=== PATIENT | male | born 1995 | race African-American/Black ===

== ENCOUNTER 2022-04-20 21:13 | Emergency (ER) | payer SELFPAY ==
--- NOTE | 2022-04-20 | ECG_ITS ---
Test Reason : OVERDOSE Blood Pressure : / mmHG Vent. Rate : 055 BPM Atrial Rate : 055 BPM P-R Int : 156 ms QRS Dur : 106 ms QT Int : 428 ms P-R-T Axes : 039 077 044 degrees QTc Int : 409 ms Sinus bradycardia Early repolarization Otherwise normal ECG No previous ECGs available Referred By: Generic ED Physician Electronically Signed By:KAITLIN BARNETT MD
--- NOTE | ~2022-04-20 | XR_ITS ---
EXAMINATION: XR CHEST CLINICAL INFORMATION: Overdose COMPARISON: None TECHNIQUE: Frontal view of the chest was obtained. FINDINGS: Aside from hypoinflation, no significant abnormality is noted involving the heart, lungs, mediastinum, bony thorax or soft tissues. There is gaseous distention of the stomach. XR/XR chest 1V IMPRESSION: No acute intrathoracic disease.
[2022-04-20 21:23] VITALS: BP 138/108; PULSE 56; O2SAT 95; BMI 24.3
--- NOTE | 2022-04-20 21:27 | PC.NURSE ---
Pt arrives via EMS as a presumed overdose. Immediately on arrival pts clothes removed and all of his clothes and belongings placed in belongings bags and given to security. RR WNL, non-labored, Room air sat's WNL.
[2022-04-20 21:36] VITALS: BP 84/39; PULSE 54; RESP 10; O2SAT 99
--- NOTE | 2022-04-20 21:41 | MHC.EDTECH ---
RN Made aware of Low BP
--- NOTE | 2022-04-20 21:51 | ED.OVERDOSE ---
HPI - Overdose General Chief Complaint: Overdose Stated Complaint: overdose Time Seen by Provider: 04/20/22 21:49 Source: EMS Mode of arrival: EMS Limitations: altered mental status History of Present Illness HPI Narrative: Patient brought by EMS for presumed overdose found unresponsive by PD prior to EMS arrival was given 8 mg of intranasal Narcan by the PD and 2 mg of IV Narcan by EMS and patient I had patient was drowsy patient admitted using marijuana and alcohol denies any opiates on arrival patient's blood pressure was 84/39 with pulse rate of 54 respiration 10 saturating 99% at room air Related Data Allergies Allergy/AdvReac Type Severity Reaction Status Date / Time No Known Allergies Allergy Verified 04/20/22 22:05 Review of Systems Review of Systems: Yes Unobtainable due to mental status PMFSH Social History Social History Advance Directives: No Advance Directives Information Provided: No Physical Exam Vital Signs: Vital Signs: Last Vital Signs Temp 98.6 F 04/20/22 23:47 Pulse 72 04/21/22 02:15 Resp 14 04/21/22 02:15 BP 100/55 L 04/21/22 02:15 Pulse Ox 98 04/21/22 02:15 O2 Del Method 04/21/22 02:15 BMI result Body Mass Index 24.3 Appearance: Drowsy and sleepy arousable. No acute distress. Eyes: PERRLA, No Nystagmus HEENT: Pharynx normal. Oral Mucosa moist atraumatic normocephalic Neck: Normal inspection. Neck supple. CVS: Normal heart rate and rhythm. Pulses normal. Respiratory: No respiratory distress. Equal air entry bilateral, no wheezing/rales/rhonchi Abdomen: Soft and nontender. Bowel sounds are present, no mass palpable, no CVA tenderness Skin: Skin warm and dry. Normal skin color. Normal skin turgor. Extremities: No lower extremity edema. No calf tenderness Neuro: Lethargic. No motor deficit. No sensory deficit.No cerebellar signs , cranial nerves II-XII intact Medications Administered Discontinued Medications Generic Name Dose Route Start Last Admin Trade Name Freq PRN Reason Stop Dose Admin Sodium Chloride 1,000 mls @ 999 mls/hr 04/20/22 22:05 04/21/22 03:28 Ns IV 04/20/22 23:05 Infused .Q1H1M ONE Infusion Sodium Chloride 1,000 mls @ 999 mls/hr 04/20/22 22:08 04/21/22 03:28 Ns IV 04/20/22 23:08 Infused .Q1H1M ONE Infusion Medical Decision Making Medical Decision Making [facility] Narrative: 02:00 patient initially came in intoxicated etiology was not clear workup showed alcohol level of 173 patient woke up denied any use of narcotics was given a kit likely the cause of hypertension patient received 2 L of fluids blood pressure improved to 100/55 patient asymptomatic at this time will discharge patient home Lab Data [facility] Lab Attestation statement: I reviewed the patient's lab results. 04/20/22 22:17 04/20/22 22:17 Labs: Lab Results 04/20/22 04/20/22 04/20/22 Range/Units 22:17 22:17 22:17 WBC 6.8 (4.8-10.8) X10*3/uL RBC 4.04 L (4.60-5.80) X10*6/uL Hgb 12.4 L (14.0-18.0) g/dl Hct 37.8 L (42.0-52.0) % MCV 93.6 (80.0-98.0) fL MCH 30.7 (27.0-33.0) pg MCHC 32.8 (31.0-36.0) g/dl RDW 11.9 (11.0-16.0) % Plt Count 208 (160-400) X10*3/uL MPV 10.1 (9.4-12.4) fL Immature Gran % (Auto) 0.3 (0.0-0.4) % Neut % (Auto) 46.8 (45-73) % Lymph % (Auto) 46.9 H (20-40) % [place] % (Auto) 4.4 (2-11) % Eos % (Auto) 0.9 (0-4) % Baso % (Auto) 0.7 (0-2) % Lymph # (Auto) 3.2 (1.2-4.9) X10*3/uL [place] # (Auto) 0.3 (0.1-1.2) X10*3/uL Eos # (Auto) 0.1 (0.0-0.4) X10*3/uL Baso # (Auto) 0.1 (0.0-0.2) X10*3/uL Abs Immat Gran (auto) 0.02 (0.00-0.03) X10*3/uL Absolute Neuts (auto) 3.2 (2.0-8.3) x10*3/uL Absolute Nucleated RBC 0.000 (0.0-0.012) X10*3/uL Nucleated RBC % (auto) 0.0 (0.0-0.2) /100WBC Sodium 144 (135-145) mmol/L Potassium 4.6 (3.3-5.1) mmol/L Chloride 110 H (96-108) mmol/L Carbon Dioxide 23 (22-29) mmol/L Anion Gap 16 (12-20) BUN 12 (9-16) mg/dL Creatinine 0.99 (0.5-1.4) mg/dL Estim Creat Clear Calc 114.7 Estimated GFR > 60 Random Glucose 122 H (60-115) mg/dL Calcium 8.8 (8.4-10.2) mg/dL Magnesium (1.6-2.6) mg/dL Total Bilirubin 0.8 (0.0-1.0) mg/dL AST 24 (5-37) U/L ALT 14 (0-40) U/L Alkaline Phosphatase 64 (39-117) U/L Troponin I High Sens < 3.5 (<3.5-35.0) ng/L Total Protein 6.8 (6.5-8.0) g/dL Albumin 4.2 (3.5-5.0) g/dL Salicylates (15-30) mg/dL Urine Opiates Screen (Not Detect) Urine Fentanyl Screen (Not Detect) Acetaminophen (<30) mcg/mL Ur Barbiturates Screen (Not Detect) Ur Phencyclidine Scrn (Not Detect) Ur Amphetamines Screen (Not Detect) U Benzodiazepines Scrn (Not Detect) Urine Cocaine Screen (Not Detect) U Marijuana (THC) Screen (Not Detect) Ethyl Alcohol mg/dL 04/20/22 04/21/22 Range/Units 22:17 02:30 WBC (4.8-10.8) X10*3/uL RBC (4.60-5.80) X10*6/uL Hgb (14.0-18.0) g/dl Hct (42.0-52.0) % MCV (80.0-98.0) fL MCH (27.0-33.0) pg MCHC (31.0-36.0) g/dl RDW (11.0-16.0) % Plt Count (160-400) X10*3/uL MPV (9.4-12.4) fL Immature Gran % (Auto) (0.0-0.4) % Neut % (Auto) (45-73) % Lymph % (Auto) (20-40) % [place] % (Auto) (2-11) % Eos % (Auto) (0-4) % Baso % (Auto) (0-2) % Lymph # (Auto) (1.2-4.9) X10*3/uL [place] # (Auto) (0.1-1.2) X10*3/uL Eos # (Auto) (0.0-0.4) X10*3/uL Baso # (Auto) (0.0-0.2) X10*3/uL Abs Immat Gran (auto) (0.00-0.03) X10*3/uL Absolute Neuts (auto) (2.0-8.3) x10*3/uL Absolute Nucleated RBC (0.0-0.012) X10*3/uL Nucleated RBC % (auto) (0.0-0.2) /100WBC Sodium (135-145) mmol/L Potassium (3.3-5.1) mmol/L Chloride (96-108) mmol/L Carbon Dioxide (22-29) mmol/L Anion Gap (12-20) BUN (9-16) mg/dL Creatinine (0.5-1.4) mg/dL Estim Creat Clear Calc Estimated GFR Random Glucose (60-115) mg/dL Calcium (8.4-10.2) mg/dL Magnesium 2.0 (1.6-2.6) mg/dL Total Bilirubin (0.0-1.0) mg/dL AST (5-37) U/L ALT (0-40) U/L Alkaline Phosphatase (39-117) U/L Troponin I High Sens (<3.5-35.0) ng/L Total Protein (6.5-8.0) g/dL Albumin (3.5-5.0) g/dL Salicylates < 5.0 L (15-30) mg/dL Urine Opiates Screen Not Detected (Not Detect) Urine Fentanyl Screen Not Detected (Not Detect) Acetaminophen < 17 (<30) mcg/mL Ur Barbiturates Screen Not Detected (Not Detect) Ur Phencyclidine Scrn Not Detected (Not Detect) Ur Amphetamines Screen Not Detected (Not Detect) U Benzodiazepines Scrn Not Detected (Not Detect) Urine Cocaine Screen Not Detected (Not Detect) U Marijuana (THC) Screen POSITIVE H (Not Detect) Ethyl Alcohol 173 mg/dL Independent Interpretation I performed an independent interpretation of an: EKG Interpretation: Sinus bradycardia heart rate 55 beats per minute normal interval normal axis early repolarization changes no acute ischemic Discharge Plan Discharge Clinical Impression: Alcohol intoxication Patient Disposition: Home, Self-Care Instructions: Alcohol Intoxication (ED) Additional Instructions: Do not drink alcohol Follow detox if any concerns Interventions: Spicer-Suicide Risk Severity Scale Last Done: 04/21/22 04:21 ED Discharge Assessment Last Done: 04/21/22 04:21 Discharge Date/Time: 04/21/22 04:22
--- NOTE | 2022-04-20 21:54 | PC.NURSE ---
Pt assessed, hypotensive, arousableto voice and light touch. 1 liter of NS infusing
[2022-04-20] MEDS: 0.9 % Sodium Chloride 1,000 ML 999 ML IV ×2 (22:00→22:42)
[2022-04-20 22:23] LABS: MANUAL DIFF FLAG NO
[2022-04-20 22:25] LABS: Basophils Absolute Auto 0.1 X10*3/uL (0.0-0.2); Basophils Percent Auto 0.7 % (0-2); Eosinophils Absolute Auto 0.1 X10*3/uL (0.0-0.4); Eosinophils Percent Auto 0.9 % (0-4); Hematocrit 37.8 % (42.0-52.0); Hemoglobin 12.4 g/dl (14.0-18.0); Imm Gran Abs Auto 0.02 X10*3/uL (0.00-0.03); Imm Gran Pct Auto 0.3 % (0.0-0.4); Lymphocytes Absolute Auto 3.2 X10*3/uL (1.2-4.9); Lymphocytes Percent Auto 46.9 % (20-40); Mean Corpuscular HGB Conc 32.8 g/dl (31.0-36.0); Mean Corpuscular Hemoglobin 30.7 pg (27.0-33.0); Mean Corpuscular Volume 93.6 fL (80.0-98.0); Mean Platelet Volume 10.1 fL (9.4-12.4); Monocytes Absolute Auto 0.3 X10*3/uL (0.1-1.2); Monocytes Percent Auto 4.4 % (2-11); Neutrophils Absolute Auto 3.2 x10*3/uL (2.0-8.3); Neutrophils Percent Auto 46.8 % (45-73); Platelet Count 208 X10*3/uL (160-400); Red Blood Count 4.04 X10*6/uL (4.60-5.80); Red Cell Distribution Width 11.9 % (11.0-16.0); White Blood Count 6.8 X10*3/uL (4.8-10.8)
[2022-04-20 22:30] VITALS: BP 107/50; PULSE 68; RESP 12; O2SAT 97
[2022-04-20 22:47] LABS: Acetaminophen LAB < 17 mcg/mL (<30); Alanine Aminotransferase 14 U/L (0-40); Albumin Level 4.2 g/dL (3.5-5.0); Alkaline Phosphatase 64 U/L (39-117); Anion Gap 16 (12-20); Aspartate Amino Transferase 24 U/L (5-37); Bilirubin Total 0.8 mg/dL (0.0-1.0); Blood Urea Nitrogen 12 mg/dL (9-16); Calcium 8.8 mg/dL (8.4-10.2); Carbon Dioxide 23 mmol/L (22-29); Chloride 110 mmol/L (96-108); Creatinine Clr Calc Pharmacy 114.7; Estimated Glomerular Filt Rate > 60; Ethanol 173 mg/dL; Glucose Random 122 mg/dL (60-115); Potassium 4.6 mmol/L (3.3-5.1); Salicylate < 5.0 mg/dL (15-30); Sodium 144 mmol/L (135-145); Total Protein 6.8 g/dL (6.5-8.0)
[2022-04-20 22:53] LABS: Troponin-I High Sensitivity < 3.5 ng/L (<3.5-35.0)
[2022-04-20 23:47] VITALS: BP 103/48; PULSE 80; RESP 13; TEMP 37; O2SAT 97
[2022-04-21 02:15] VITALS: BP 100/55; PULSE 72; RESP 14; O2SAT 98
[2022-04-21 02:57] LABS: Amphetamine Screen Urine Not Detected (Not Detect); Barbiturates, Urine Not Detected (Not Detect); Benzodiazepines Screen Urine Not Detected (Not Detect); Cannabinoid Screen Urine POSITIVE (Not Detect); Cocaine Screen Urine Not Detected (Not Detect); Fentanyl, urine Not Detected (Not Detect); Opiate Screen Urine Not Detected (Not Detect); Phencyclidine Screen Urine Not Detected (Not Detect)
--- NOTE | 2022-04-21 04:19 | PC.NURSE ---
Tee is discharged at this time. The pt verbalized an understanding of all DC orders and ambulated to the waiting room with steady gait independently.
== END 2022-04-21 04:22 | disposition home or self-care (01) ==
PROVIDERS: Emergency Provider Internal Medicine
DX: R40.0 Somnolence (principal); F10.920 Alcohol use, unspecified with intoxication, uncomplicated; Y90.6 Blood alcohol level of 120-199 mg/100 ml; R00.1 Bradycardia, unspecified; F12.90 Cannabis use, unspecified, uncomplicated
CPT/HCPCS: 36415; 71045; 80053; 80143; 80179; 80307; 82077; 83735; 84484; 85025; 93005; 96360; 96361; 99284; 99285

== ENCOUNTER 2022-05-13 21:34 | Emergency (ER) | payer MEDICAID, SELFPAY ==
[2022-05-13 22:09] VITALS: BP 125/71; PULSE 71; RESP 20; TEMP 36.4; O2SAT 97; BMI 20.9
--- NOTE | 2022-05-13 23:36 | ECG_ITS ---
Test Reason : cp now gone Blood Pressure : / mmHG Vent. Rate : 057 BPM Atrial Rate : 057 BPM P-R Int : 170 ms QRS Dur : 100 ms QT Int : 392 ms P-R-T Axes : 067 077 036 degrees QTc Int : 381 ms Sinus bradycardia RSR' or QR pattern in V1 suggests right ventricular conduction delay Borderline ECG When compared with ECG of 20-APR-2022 21:20, RSR' pattern in V1 is now Present Referred By: Debbie Bella Electronically Signed By:KAITLIN BARNETT MD
--- NOTE | 2022-05-14 00:12 | ED_ITS ---
HPI - Anxiety General Chief Complaint: Anxiety Stated Complaint: ? panic attack Time Seen by Provider: 05/13/22 23:35 Source: patient Mode of arrival: ambulatory Limitations: no limitations History of Present Illness HPI narrative: 27-year-old male previously healthy here with complaints of panic attack which occurred just prior to arrival. Patient reports he has multiple life stressors currently. He started to experience chest tightness, rapid heart rate, headache which lasted approximately 45 minutes and resolved without intervention. Patient feels better now and has no symptoms. Patient reports that he has had panic attacks before and this felt very similar. Patient reports he has multiple life stressors, feels anxious quite often. Patient has had occasional suicidal thoughts but denies any suicidal thoughts now. No homicidal ideations. No hallucinations. No substance use. Related Data Allergies Allergy/AdvReac Type Severity Reaction Status Date / Time No Known Allergies Allergy Verified 05/13/22 22:11 Review of Systems Review of Systems: Yes all other systems are reviewed and are negative Constitutional: Constitutional: Reports no additional constitutional complaints, Denies body ache(s), Denies chills, Denies fever(s), Reports headache(s) and Denies weakness Eyes: Eyes: Reports no additional eye complaints and Denies change in vision ENT: Reports system reviewed and no additional complaints, except as documented, Denies dizziness, Reports headache(s), Denies nasal congestion, Denies nasal discharge and Denies neck pain Cardiovascular: Cardiovascular: Reports no additional cardiovascular complaints, Reports chest pain, Denies leg edema, Reports palpitations and Denies dyspnea Respiratory: Respiratory: Reports no additional respiratory complaints, Denies cough and Denies dyspnea Gastrointestinal: Gastrointestinal: Reports no additional gastrointestinal complaints, Denies abdominal pain, Denies diarrhea, Denies nausea and Denies v omiting Genitourinary: Genitourinary: Denies urinary incontinence Musculoskeletal: Musculoskeletal: Reports no additional musculoskeletal complaints, Denies back pain, Denies arthralgias, Denies joint swelling, Denies neck pain, Denies numbness and Denies tingling Integumentary/Breasts: Skin/Breast: Reports system reviewed and no additional complaints, except as docu and Denies rash Neurologic: Reports system reviewed and no additional complaints, except as documented, Denies Abnormal speech present, Denies dizziness, Reports headache(s), Denies numbness, Denies tingling and Denies weakness Psychiatric: Psychiatric: Reports no additional psychiatric complaints, Reports anxiety, Denies depression, Reports panic attacks, Denies visual hallucinations, Denies hallucinations, Denies homicidal ideation and Denies suicidal ideation Endocrine: Endocrine: Reports palpitations PMF Past Medical History Attestation statement: The following information was validated with the patient. Source: old records reviewed and nursing notes reviewed Social History Social History Advance Directives: No Advance Directives Information Provided: No Physical Exam Vital Signs: Vital Signs: Last Vital Signs Temp 97.5 F 05/13/22 22:09 Pulse 71 05/13/22 22:09 Resp 20 05/13/22 22:09 BP 125/71 05/13/22 22:09 Pulse Ox 97 05/13/22 22:09 O2 Del Method 05/13/22 22:09 BMI result Body Mass Index 20.9 Const: General: cooperative, healthy appearing, comfortable and no acute dis tress Orientation/consciousness: patient oriented x3 Limitations: no limitations HEENT: Head: Yes normal to inspection Ears: hearing grossly normal bilaterally General nose exam: Normal external nose present Face and sinus: Yes normal facial exam Mouth: Normal oral and palatal mucosa present Throat: Yes posterior oropharynx normal Eyes: General: appearance normal, both eyes and all related structures Pupils: Equal, round and reactive pupils present Neck: Neck: Yes normal visual inspection Chest: Chest palpation & inspection: normal inspection of the chest Resp: Effort & Inspection: normal respiratory effort Auscultation: clear to auscultation bilaterally Cardio: Rate: regular rate Rhythm: regular rhythm Peripheral pulses: Peripheral pulses 2+ throughout GI: Inspection: Yes normal to inspection Palpation (GI): Soft to palpation and nontender Auscultation: normal bowel sounds Back/Spine/Pelvis: Thoracic/Lumbar Spine: thoracic and lumbar spine normal to inspection Skin: General skin exam: no rashes or lesions noted Neuro: General: patient oriented x3, no focal motor deficits and normal sensation to monofilament Cranial nerves: Yes Equal, round and reactive pupils present Cognition (Neuro): normal cognition Speech: No Abnormal speech present Gait exam (Neuro): Normal gait present Motor exam (neuro): 5/5 motor strength present throughout Extrem: General: Yes normal to inspection, Yes no pedal edema and Yes no calf tenderness Course Reevaluation(s) Reevaluation #1: Seen by care team. See their documentation. Patient will be discharged home. Reviewed worrisome signs and symptoms of when to return to the emergency room. Comfortable plan for discharge home. No SI Medical Decision Making Medical Decision Making MDM Narrative: 27-year-old male here with reports of panic attack which occurred prior to arrival and is now resolved with multiple life stressors at home, constantly feeling anxious. Has had suicidal thoughts in the past but none currently. Patient would like to speak to a neonatal social worker. Will obtain EKG, care team consultation. If patient desires to leave he can Differential Diagnosis Differential Diagnoses: The differential diagnosis associated with the presentation includes Panic attack, anxiety Consult Healthcare Provider Management of the patient was discussed with: Behavioral Health Provider Seen by care team Neisha-plan for referral to partial hospitalization and outpatient providers Independent Interpretation I performed an independent interpretation of an: EKG Interpretation: Independently reviewed the EKG which shows sinus tachycardia, normal pr, normal qrs, normal qt Discharge Plan Discharge Clinical Impression: Acute anxiety Patient Disposition: Home, Self-Care Instructions: Anxiety (ED) Additional Instructions: Your given referral for partial hospitalization and outpatient therapy. Please return for any worsening symptoms Referrals: Physician,Unknown J [Primary Care Provider] -
--- NOTE | 2022-05-14 01:31 | MHC.CARE ---
Tee was referred for a consult secondary to anxiety and a panic attack due to psychosocial stressors. Tee denied SI/HI to the provider. Tee presented as anxious and a bit overwhelmed. Tee stated that he has been having anxiety attacks for a couple of years but they are more frequent now. He reports having Panic attacks at least twice a week currently. Tee stated that he was looking to speak with a Psychiatrist to get a diagnosis and learn how to better handle his anxiety and problems. Tee stated that he is interested in possibly taking medication to help alleviate his symptoms . Tee stated that he did not have a therapist but was interested in getting started with a therapist. PHP was also presented to Tee as an option. Tee requested to be referred for both PHP and an individual outpatient therapist to begin after his discharge from the Partial Hospitalization program.
--- NOTE | 2022-05-14 02:09 | PC.NURSE ---
pt a&o, no sob or chest pain, pt sitting in chair relaxed and cooperative. Care team in to assess pt and discussed plan of care. Reviewed discharge instructions. Pt verbalized understanding.
[2022-05-14 02:10] VITALS: BP 130/88; PULSE 64; RESP 19; TEMP 36.7; O2SAT 98
[2022-05-14 02:28] LABS: Amphetamine Screen Urine Not Detected (Not Detect); Barbiturates, Urine Not Detected (Not Detect); Benzodiazepines Screen Urine Not Detected (Not Detect); Cannabinoid Screen Urine Not Detected (Not Detect); Cocaine Screen Urine Not Detected (Not Detect); Fentanyl, urine Not Detected (Not Detect); Opiate Screen Urine Not Detected (Not Detect); Phencyclidine Screen Urine Not Detected (Not Detect)
--- NOTE | 2022-05-14 11:32 | MHC.CARE ---
[facility] and PHP referrals completed.
== END 2022-05-14 02:15 | disposition home or self-care (01) ==
PROVIDERS: Emergency Provider Emergency Medicine
DX: F41.9 Anxiety disorder, unspecified (principal); R00.0 Tachycardia, unspecified; Z72.89 Other problems related to lifestyle; Z73.3 Stress, not elsewhere classified
CPT/HCPCS: 80307; 93005; 99284